=== PATIENT | male | born 1985 | race African-American/Black ===

== ENCOUNTER 2017-03-25 10:58 | Emergency (ER) | payer MEDICAID ==
[~2017-03-25] VITALS: Ht 185.4 cm; Wt 79.0 kg
[2017-03-25] MEDS ORDERED: TETANUS, DIPHTHERIA, PERTUSSIS VAC/PF 0.5ML (>7YR OLD) IM ONE (12:00)
[2017-03-25] MEDS ORDERED: LIDOCAINE HCL 1% 20ML VIAL (Pyxis) INJ INFIL ONE (12:15)
[2017-03-25] MEDS ORDERED: IBUPROFEN 600MG TABLET PO ONE (12:15)
[2017-03-25 12:47] VITALS: BP 135/76
== END 2017-03-25 12:54 | disposition home or self-care (01) ==
LOC: ER 11:21
DX: S61.011A Laceration without foreign body of right thumb without damage to nail, initial encounter (principal); F12.10 Cannabis abuse, uncomplicated; Z88.0 Allergy status to penicillin; W25.XXXA Contact with sharp glass, initial encounter; Y93.89 Activity, other specified; Y92.89 Other specified places as the place of occurrence of the external cause
CPT/HCPCS: 12001; 90471; 90715; 99283; J3490; X7700; Z7610

== ENCOUNTER 2018-06-26 22:57 | Emergency (ER) | payer MEDICAID ==
[~2018-06-26] VITALS: Ht 185.4 cm; Wt 75.0 kg
[2018-06-27] MEDS ORDERED: IBUPROFEN 600MG TABLET PO ONE
[2018-06-27] MEDS ORDERED: HYDROCODONE/ACETAMINOPHEN 5/325MG TABLET PO ONE (01:15)
[2018-06-27 01:30] VITALS: BP 126/83
== END 2018-06-27 02:00 | disposition home or self-care (01) ==
LOC: ER 23:05
DX: M25.531 Pain in right wrist (principal); F12.10 Cannabis abuse, uncomplicated
CPT/HCPCS: 73110; 99284; A4565

== ENCOUNTER 2018-06-27 12:22 | Emergency (ER) | payer MEDICAID ==
[~2018-06-27] VITALS: Ht 185.4 cm; Wt 75.0 kg
[2018-06-27] MEDS ORDERED: HYDROCODONE/ACETAMINOPHEN 5/325MG TABLET PO ONE (13:15)
[2018-06-27 14:52] VITALS: BP 121/75
== END 2018-06-27 14:52 | disposition home or self-care (01) ==
LOC: ER 13:27
DX: M79.641 Pain in right hand (principal); M25.531 Pain in right wrist; L03.90 Cellulitis, unspecified; F12.10 Cannabis abuse, uncomplicated; Z88.0 Allergy status to penicillin; Z98.890 Other specified postprocedural states
CPT/HCPCS: 73130; 99284

== ENCOUNTER 2018-09-01 12:38 | Emergency (ER) | payer MEDICAID, OTHER ==
[~2018-09-01] VITALS: Ht 185.4 cm; Wt 73.0 kg
[2018-09-01 13:49] VITALS: BP 118/75
[2018-09-01] MEDS ORDERED: CEFTRIAXONE SODIUM 250 MG/VIAL IM ONE (16:00)
[2018-09-01] MEDS ORDERED: AZITHROMYCIN 500 MG TABLET PO ONE (16:00)
[2018-09-01] MEDS ORDERED: LIDOCAINE HCL 1% 20ML VIAL (Pyxis) INJ INFIL ONE (16:15)
[2018-09-01 17:09] LABS: CLARITY URINE CLEAR (CLEAR); COLOR URINE YELLOW (YELLOW); KETONES URINE TRACE (NEGATIVE); LEUKOCYTE ESTERASE URINE 2+ (NEGATIVE); NITRITE URINE NEGATIVE (NEGATIVE); OCCULT BLOOD URINE NEGATIVE (NEGATIVE); PROTEIN URINE NEGATIVE (NEGATIVE); SPECIFIC GRAVITY URINE 1.019 (1.005-1.030)
[2018-09-05 04:16] LABS: CHLAMYDIA TRACHOMATIS NAA Negative (Negative); NEISSERIA GONORRHOEAE NAA Positive (Negative)
== END 2018-09-01 18:52 | disposition home or self-care (01) ==
LOC: ER 12:52
DX: N34.2 Other urethritis (principal); B35.4 Tinea corporis; F12.10 Cannabis abuse, uncomplicated; Z88.0 Allergy status to penicillin
CPT/HCPCS: 71045; 81003; 87491; 87591; 87804; 96372; 99284; J0696; J3490

== ENCOUNTER 2020-09-08 01:29 | Emergency (ER) | payer MEDICAID, OTHER ==
[~2020-09-08] VITALS: Ht 185.4 cm; Wt 78.0 kg
[2020-09-08 03:36] VITALS: BP 118/66
== END 2020-09-08 03:42 | disposition home or self-care (01) ==
LOC: ER 01:29
DX: R43.0 Anosmia (principal); Z03.818 Encounter for observation for suspected exposure to other biological agents ruled out; F17.290 Nicotine dependence, other tobacco product, uncomplicated; F12.10 Cannabis abuse, uncomplicated; Z88.0 Allergy status to penicillin; Z98.890 Other specified postprocedural states
CPT/HCPCS: 71045; 87635; 99284